=== PATIENT | female | born 1950 | race Caucasian/White ===

== ENCOUNTER 2020-09-08 11:43 | Outpatient (REF) | payer MEDICARE, MEDICAID, SELFPAY ==
--- NOTE | 2020-09-08 11:53 | XR_ITS ---
EXAMINATION: XR CHEST CLINICAL INFORMATION: Cough COMPARISON: None TECHNIQUE: 2 views of the chest were obtained. FINDINGS: There is no lobar or segmental airspace consolidation or groundglass opacity. The costophrenic sulci are clear. The heart is normal in size. The hilar and sternal contours are normal. There is dextrocurvature thoracic spine with multilevel mild degenerative disc changes. XR/XR chest 2V IMPRESSION: Unremarkable examination.
== END 2020-09-08 11:44 | disposition home or self-care (01) ==
LOC: HO.XRAY 11:43
DX: R05 Cough (principal)
CPT/HCPCS: 71046

== ENCOUNTER 2021-05-05 14:49 | Outpatient (REF) | payer MEDICARE, MEDICAID, SELFPAY ==
--- NOTE | ~2021-05-05 | MM_ITS ---
EXAMINATION: MM SCREENING DIGITAL BREAST TOMOSYNTHESIS, BILATERAL CLINICAL INFORMATION: Screening. Bilateral inverted nipples. The lifetime risk of breast cancer based on the Tyrer-Cuzick Model is 2.1%. COMPARISON: Mammography: None. TECHNIQUE: Digital breast tomosynthesis is performed in both the craniocaudal and mediolateral oblique views along with computer-aided detection (CAD). Synthesized 2-D images are generated from the tomosynthesis. Additional right exaggerated craniocaudal view performed. FINDINGS: There are scattered areas of fibroglandular density (ACR BI-RADS breast composition Category b). Bilateral nipple inversion is present. There is some irregular density about the retroareolar region of the right breast. No suspicious grouping of microcalcifications identified. There is question of density in the retroareolar region of the left breast but with no definite suspicious mass. Recommend bilateral subareolar ultrasound for further evaluation. MM/MM tomosynthesis screening BI IMPRESSION: Bilateral nipple inversion for which bilateral breast ultrasound is recommended. ASSESSMENT: BI-RADS 0: Incomplete - Need Additional Imaging Evaluation. RECOMMENDATION: Additional bilateral targeted ultrasound. Radiology department staff will contact the patient for additional imaging. This patient's information was entered into a reminder system with a target due date for their next mammogram.
== END 2021-05-05 14:50 | disposition home or self-care (01) ==
LOC: HO.MAMMO 14:49
PROVIDERS: Visit Provider Nurse Practitioner Primary Care
DX: Z12.31 Encounter for screening mammogram for malignant neoplasm of breast (principal)
CPT/HCPCS: 77063; 77067

== ENCOUNTER 2021-05-11 12:56 | Outpatient (REF) | payer MEDICARE, MEDICAID, SELFPAY ==
--- NOTE | ~2021-05-11 | US_ITS ---
EXAMINATION: US DIAGNOSTIC ULTRASOUND BREAST, LEFT CLINICAL INFORMATION: Nipple inversion. COMPARISON: Mammography of May 05, 2021. TECHNIQUE: Ultrasound of the breast is performed with real-time lindsay scale imaging and color Doppler. FINDINGS: There is no focal suspicious finding. There is no solid mass, architectural abnormality, duct ectasia, or edema in the soft tissue planes. Results are discussed with the patient at time of visit. US/US breast LT limited IMPRESSION: No left breast ultrasound abnormality appreciated. ASSESSMENT: BI-RADS 1: Negative RECOMMENDATION: Routine annual mammography screening due in 12 months. This patient's information was entered into a reminder system with a target due date for their next mammogram.
--- NOTE | ~2021-05-11 | US_ITS ---
EXAMINATION: US DIAGNOSTIC ULTRASOUND BREAST, RIGHT CLINICAL INFORMATION: Nipple inversion. COMPARISON: Mammography of May 05, 2021. TECHNIQUE: Ultrasound of the breast is performed with real-time lindsay scale imaging and color Doppler. FINDINGS: There is no focal suspicious finding. There is no solid mass, architectural abnormality, duct ectasia, or edema in the soft tissue planes. Results are discussed with the patient at time of visit. US/US breast RT limited IMPRESSION: No suspicious right breast ultrasound finding. ASSESSMENT: BI-RADS 1: Negative RECOMMENDATION: Routine annual mammography screening due in 12 months. This patient's information was entered into a reminder system with a target due date for their next mammogram.
== END 2021-05-11 12:57 | disposition home or self-care (01) ==
LOC: HO.MAMMO 12:56
PROVIDERS: Visit Provider Nurse Practitioner Primary Care
DX: N64.59 Other signs and symptoms in breast (principal)
CPT/HCPCS: 76642

== ENCOUNTER → 2022-02-12 08:43 | Outpatient (BNVA) | payer MEDICARE, MEDICAID, SELFPAY | PROVIDERS: PCP Family Medicine; Referring Provider Family Medicine; Visit Provider Physician Assistant | DX: Z12.11 Encounter for screening for malignant neoplasm of colon (principal); K59.09 Other constipation; Z53.20 Procedure and treatment not carried out because of patient's decision for unspecified reasons | CPT/HCPCS: Q3014 ==

== ENCOUNTER 2022-10-19 13:02 | Emergency (ER) | payer MEDICARE, MEDICAID, SELFPAY ==
[2022-10-19] VITALS (7 sets, daily range): BP systolic 138–167; BP diastolic 70–92; PULSE 82–103; RESP 18–48; TEMP 36.7–37.5; O2SAT 95–98; BMI 30.2
--- NOTE | ~2022-10-19 | XR_ITS ---
EXAMINATION: XR CHEST CLINICAL INFORMATION: Cough COMPARISON: 09/08/2020 TECHNIQUE: 2 views of the chest were obtained. FINDINGS: The lungs are well expanded. There is no focal consolidation, edema, or effusion. Linear atelectasis at the left base. No pneumothorax. The cardiomediastinal silhouette is within normal limits. No acute osseous abnormality. XR/XR chest 2V IMPRESSION: Linear left basilar atelectasis. Otherwise clear lungs.
--- NOTE | ~2022-10-19 | CT_ITS ---
EXAMINATION: CT ABDOMEN AND PELVIS WITHOUT CONTRAST CLINICAL INFORMATION: Abdominal distention, shortness of breath and cough COMPARISON: None TECHNIQUE: Multidetector volumetric imaging was performed from the superior aspect of the liver through the pubic symphysis. Sagittal and coronal reformatted images were obtained on the technologist's workstation. This CT examination was performed using dose optimization techniques as appropriate, variously including the following: *Automated exposure control *Adjustment of mA and/or kV according to patient size (this includes techniques or standardized protocols for targeted exams where dose is matched to indication/reason for exam; i.e. extremities or head) *Use of iterative reconstruction technique DLP: 749 mGy-cm FINDINGS: LUNG BASES: See chest CT from the same day LIVER, GALLBLADDER, AND BILIARY TREE: The liver is low in attenuation suggestive of fatty infiltration. There is a large gallstone in the gallbladder. The gallbladder is contracted. It is difficult to exclude gallbladder wall thickening. There is no intrahepatic biliary duct dilatation. The common bile duct is upper normal in size measuring 7 mm. PANCREAS: Unremarkable. SPLEEN: Unremarkable. ADRENAL GLANDS: Unremarkable. KIDNEYS AND URETERS: Small 1 to 2 mm nonobstructing stone in the upper pole of the left kidney. BLADDER: Unremarkable. GASTROINTESTINAL TRACT: The small and large bowel are unremarkable. The appendix is unremarkable. ABDOMINAL WALL: Small umbilical hernia containing fat. LYMPH NODES: Normal. VASCULAR: Atherosclerotic disease. 2 splenic artery aneurysms in the hilum measuring 0.8 and1.0 cm. One splenic artery aneurysms posterior to the body the pancreas measuring 8 mm. PELVIC VISCERA: Unremarkable. OSSEOUS STRUCTURES: Degenerative changes of the spine. CT/CT abdomen pelvis wo IV con IMPRESSION: Large gallstone in the gallbladder. Fatty liver. Small nonobstructing left renal stone. Splenic artery aneurysms, largest in the hilum measuring 10 mm. Fleischner guidelines were followed.
--- NOTE | ~2022-10-19 | CT_ITS ---
EXAMINATION: CT CHEST WITHOUT CONTRAST CLINICAL INFORMATION: Shortness of breath and cough COMPARISON: Previous chest x-ray most recent from the same day TECHNIQUE: Multidetector volumetric CT imaging of the chest was done. Axial MIP volume rendering provided. Sagittal and coronal reformatted images were obtained. This CT examination was performed using dose optimization techniques as appropriate, variously including the following: *Automated exposure control *Adjustment of mA and/or kV according to patient size (this includes techniques or standardized protocols for targeted exams where dose is matched to indication/reason for exam; i.e. extremities or head) *Use of iterative reconstruction technique DLP: 214 mGy-cm FINDINGS: LUNGS: Bronchial wall thickening and airspace disease in the left lower lobe suggestive of bronchopneumonia. 6 mm calcified granuloma in the right middle lobe axial image 209 series 7. MEDIASTINUM: Upper normal-size heart. No pericardial effusion. Aortic valve calcification. Normal caliber thoracic aorta. No enlarged hilar or mediastinal lymph nodes. Question small esophageal hernia. CORONARY ARTERY CALCIFICATION: None visualized on this study. PLEURA: There is no pleural effusion. No pleural mass or thickening. AXILLA: No lymphadenopathy. UPPER ABDOMEN: Unremarkable. OSSEOUS STRUCTURES: Degenerative changes of the spine. T11 vertebral body hemangioma. CT/CT chest wo IV con IMPRESSION: Left lower lobe bronchopneumonia. 6 mm calcified right middle lobe nodule suggestive of a calcified granuloma. Fleischner guidelines were followed.
--- NOTE | 2022-10-19 13:17 | ED.URI ---
HPI - URI/Sore Throat General Chief Complaint: Upper Respiratory Symptoms <GAIBNO Rodriguez - Last Filed: 10/19/22 13:20> Stated Complaint: Cough/Body aches <GABINO Rodriguez - Last Filed: 10/19/22 13:20> Time Seen by Provider: 10/19/22 17:13 <GABINO Rodriguez - Last Filed: 10/19/22 13:20> Source: patient <Hanane Queen NP - Last Filed: 10/20/22 00:28> Mode of arrival: ambulatory <JUAN R Akins Last Filed: 10/20/22 00:28> Limitations: no limitations <JUAN R Akins Last Filed: 10/20/22 00:28> History of Present Illness HPI Narrative: 72-year-old female presents with rib pain, 5 days of body aches, tachypnea, and over 3 months of a cough. States that she has taken multiple [id number]-fzk-[id number] medications over the past few months, but the cough keeps coming back. <Hanane Queen NP - Last Filed: 10/20/22 00:28> MD elicited complaint: cough, sore throat, rhinorrhea and nasal congestion <JUAN R Akins Last Filed: 10/20/22 00:28> Onset (ago): month(s) (3) <Hanane Queen NP - Last Filed: 10/20/22 00:28> Consistency: intermittent and progressively worsening <JUAN R Akins Last Filed: 10/20/22 00:28> Severity: moderate <Hanane Queen NP - Last Filed: 10/20/22 00:28> Description of mucous: clear <JUAN R Akins Last Filed: 10/20/22 00:28> Able to tolerate fluids by mouth: Yes <JUAN R Akins Last Filed: 10/20/22 00:28> Exacerbating factors: exertion and deep breaths <JUAN R Akins Last Filed: 10/20/22 00:28> Relieving factors: nothing <JUAN R Akins Last Filed: 10/20/22 00:28> Associated symptoms: myalgias, headache, rhinorrhea, nasal congestion, sore throat, cough and shortness of breath <Hanane Queen NP - Last Filed: 10/20/22 00:28> Treatments prior to arrival: cold medicine <Hanane Queen NP - Last Filed: 10/20/22 00:28> Related Data Home Medications: Home Medications Medication Instructions Recorded Confirmed aspirin 81 mg tablet,delayed 81 mg PO DAILY 02/12/22 release atorvastatin 10 mg tablet 10 mg PO DAILY 02/12/22 docusate sodium 100 mg capsule 100 mg PO BEDTIME PRN 02/12/22 haloperidol 2 mg tablet 2 mg PO BEDTIME 02/12/22 hydrochlorothiazide 25 mg tablet 25 mg PO DAILY 02/12/22 melatonin 5 mg tablet 5 mg PO BEDTIME 02/12/22 metformin 850 mg tablet 850 mg PO BID 02/12/22 mirtazapine 7.5 mg tablet 7.5 mg PO BEDTIME 02/12/22 Previous Rx's Medication Instructions Recorded methylcellulose (laxative) 500 mg 500 mg PO BID #60 tabs 02/12/22 tablet (Citrucel) benzonatate 100 mg capsule 100 mg PO TID PRN cough #20 caps 10/19/22 cefuroxime axetil 500 mg tablet 500 mg PO Q12H 7 days #14 tabs 10/19/22 doxycycline monohydrate 100 mg 100 mg PO BID 7 days #14 caps 10/19/22 capsule <GABINO Rodriguez - Last Filed: 10/19/22 13:20> Allergies/Adverse Reactions: Allergies Allergy/AdvReac Type Severity Reaction Status Date / Time No Known Allergies Allergy Verified 10/19/22 13:19 <GABINO Rodriguez - Last Filed: 10/19/22 13:20> Review of Systems Review of Systems: Constitutional: No Fever, no Chills, positive fatigue, positive Malaise ENT/Mouth: positive sore throat, positive runny nose Eyes: No Discharge Cardiovascular: Positive chest wall Pain, positive SOB Respiratory: Positive Cough, No Sputum, No Wheezing, No Smoke Exposure, positive Dyspnea Gastrointestinal: No Nausea, No Vomiting, No Diarrhea Genitourinary: No Dysuria, No Urinary Frequency, No Hematuria, No Urinary Incontinence, No Urgency, No Flank Pain, Musculoskeletal: positive Myalgia Skin: No rash Neuro: Positive Headache <Hanane Queen NP - Last Filed: 10/20/22 00:28> Yes all other systems are reviewed and are negative <Hanane Queen NP - Last Filed: 10/20/22 00:28> FORMERLY [facility], [facility] Past Medical History Attestation statement: The following information was validated with the patient. <Hanane Queen NP - Last Filed: 10/20/22 00:28> Source: old records reviewed <Hanane Queen NP - Last Filed: 10/20/22 00:28> Family History Family History: Family History Unknown No family history of colorectal cancer <GABINO Rodriguez - Last Filed: 10/19/22 13:20> Social History Social History: Social History Household Members Other:: lives with daughter Alcohol intake: never Patient Tobacco Use Status: Never used Tobacco Smoked in Last 30 Days: No Use of substances other than those prescribed or required for medical reasons: No Advance Directives: No Advance Directives Information Provided: Yes Current occupational status: unemployed <GABINO Rodriguez - Last Filed: 10/19/22 13:20> Physical Exam Vital Signs: Vital Signs: Last Vital Signs Temp 98.6 F 10/19/22 21:55 Pulse 99 10/19/22 21:55 Resp 21 H 10/19/22 21:55 BP 162/84 H 10/19/22 21:55 Pulse Ox 97 10/19/22 21:58 O2 Del Method 10/19/22 21:58 BMI result Body Mass Index 30.2 <GABINO Rodriguez - Last Filed: 10/19/22 13:20> Vital Signs: Last Vital Signs Temp 98.6 F 10/19/22 21:55 Pulse 99 10/19/22 21:55 Resp 21 H 10/19/22 21:55 BP 162/84 H 10/19/22 21:55 Pulse Ox 97 10/19/22 21:58 O2 Del Method 10/19/22 21:58 BMI result Body Mass Index 30.2 <Hanane Queen NP - Last Filed: 10/20/22 00:28> Appearance: Alert. Oriented X3. Appears tired. Eyes: Pupils equal, round and reactive to light. ENT: Pharynx normal. Neck: Normal inspection. Neck supple. CVS: Normal heart rate and rhythm. Pulses normal. Respiratory: Tachypneic. Mild respiratory distress. Expiratory wheezing. Diminished bases. Abdomen: Soft and nontender. Skin: Skin warm and dry. Normal skin color. Normal skin turgor. Extremities: No lower extremity edema. Gait balanced and coordinated. Neuro: No motor deficit. No sensory deficit. Cranial nerves 2-12 intact. <Hanane Queen NP - Last Filed: 10/20/22 00:28> Course Course Course Narrative: RME-- 72yo F w/pmhx DM c/o nonproductive cough and myalgias x5 days. Admits cough is keeping her up at night. Also reports tachypnea. Afebrile in triage, tachypneic with shallow breaths EKG, labs, CXR, COVID-19/influenza/RSV testing ordered in triage <GABINO Rodriguez - Last Filed: 10/19/22 13:20> RME-- 72yo F w/pmhx DM c/o nonproductive cough and myalgias x5 days. Admits cough is keeping her up at night. Also reports tachypnea. Afebrile in triage, tachypneic with shallow breaths EKG, labs, CXR, COVID-19/influenza/RSV testing ordered in triage 72-year-old female presents with 3 months of upper respiratory symptoms. States that the symptoms have waxed and waned but never really resolved. She states that over the past few days her cough is so severe that it is difficult for her to walk up stairs. Upon triage, her respiration rate was in the 40s, upon my evaluation her resting respiration rate is 20. She has adventitious lung sounds, labs were drawn while she was in the emergency department waiting room, chest x-ray was negative, influenza COVID negative, and labs were unremarkable. Considering patient's lung sounds, respiration rate, and duration of illness will order CT scan chest abdomen pelvis. 20:40 CT abdomen cholelithiasis without cholecystitis. Will have patient follow-up as an outpatient as she is not complaining of any abdominal pain, and labs are unremarkable. CT scan of the chest indicates lower lobe bronchopneumonia and a 6 mm right middle lobe nodule suggestive of calcified granuloma. 20:42 ambulatory pulse ox 94%. 20:45 discussion with hospitalist, patient does not meet admission criteria. Will give doxycycline and cefuroxime, albuterol and Tessalon. Patient's family understands that if symptoms worsen that they should return to the emergency department for evaluation. Patient verbalized understanding of and agrees to plan of care discharge home. <Hanane Queen NP - Last Filed: 10/20/22 00:28> Consultations Consultation #1: Dennis <Hanane Queen NP - Last Filed: 10/20/22 00:28> Time: 20:45 <Hanane Queen NP - Last Filed: 10/20/22 00:28> Medications Administered Discontinued Medications Generic Name Dose Route Start Last Admin Trade Name Freq PRN Reason Stop Dose Admin Albuterol Sulfate 2.5 mg/ 5 mg 10/19/22 17:20 10/19/22 17:39 Albuterol Sulfate 2.5 mg INHALE 10/19/22 17:21 5 mg ONCE ONE Administration Benzonatate 100 mg 10/19/22 21:25 10/19/22 21:43 Benzonatate 100 Mg Capsule PO 10/19/22 21:26 100 mg ONCE ONE Administration Cefuroxime Axetil 500 mg 10/19/22 21:25 10/19/22 21:43 Cefuroxime Axetil 500 Mg Tablet PO 10/19/22 21:26 500 mg ONCE ONE Administration Doxycycline Monohydrate 100 mg 10/19/22 21:25 10/19/22 21:43 Doxycycline Monohydrate 100 Mg Capsule PO 10/19/22 21:26 100 mg ONCE ONE Administration <GABINO Rodriguez - Last Filed: 10/19/22 13:20> Medications Administered Discontinued Medications Generic Name Dose Route Start Last Admin Trade Name Freq PRN Reason Stop Dose Admin Albuterol Sulfate 2.5 mg/ 5 mg 10/19/22 17:20 10/19/22 17:39 Albuterol Sulfate 2.5 mg INHALE 10/19/22 17:21 5 mg ONCE ONE Administration Benzonatate 100 mg 10/19/22 21:25 10/19/22 21:43 Benzonatate 100 Mg Capsule PO 10/19/22 21:26 100 mg ONCE ONE Administration Cefuroxime Axetil 500 mg 10/19/22 21:25 10/19/22 21:43 Cefuroxime Axetil 500 Mg Tablet PO 10/19/22 21:26 500 mg ONCE ONE Administration Doxycycline Monohydrate 100 mg 10/19/22 21:25 10/19/22 21:43 Doxycycline Monohydrate 100 Mg Capsule PO 10/19/22 21:26 100 mg ONCE ONE Administration <Hanane Queen NP - Last Filed: 10/20/22 00:28> Medical Decision Making Medical Decision Making Differential Diagnoses: Differential diagnosis (Pneumonia, COVID, influenza, CHF) <Hanane Queen NP - Last Filed: 10/20/22 00:28> Consideration of admission/observation: Consideration of Admission/Observation (Admission considered, I did discuss with hospitalist who did not feel that this patient meets admission criteria.) <Hanane Queen NP - Last Filed: 10/20/22 00:28> Discussion of management with other physician/healthcare provider/other source (e.g., hospitalist, [employer] operations consultant, behavioral health): Discussion w/other physician/healthcare provider Management of the patient was discussed with: Hospitalist My interpretation is <Hanane Queen NP - Last Filed: 10/20/22 00:28> Lab Attestation: I reviewed the patient's lab results. <JUAN R Akins Last Filed: 10/20/22 00:28> Independent interpretation of EKG, rhythm strip, radiology study: Independent interp EKG,rhythm strip, radiology study I performed an independent interpretation of the: EKG (Ventricular rate 83, MI 128, QRS 80, QT 360, QTC 423, normal sinus rhythm, normal EKG.) My interpretation is <JUAN R Akins Last Filed: 10/20/22 00:28> Discussion of test interpretation with radiology: Discussion of test interpretation with radiology EXAMINATION: XR CHEST CLINICAL INFORMATION: Cough COMPARISON: 09/08/2020 TECHNIQUE: 2 views of the chest were obtained. FINDINGS: The lungs are well expanded. There is no focal consolidation, edema, or effusion. Linear atelectasis at the left base. No pneumothorax. The cardiomediastinal silhouette is within normal limits. No acute osseous abnormality. XR/XR chest 2V IMPRESSION: Linear left basilar atelectasis. Otherwise clear lungs. FINDINGS: LUNGS: Bronchial wall thickening and airspace disease in the left lower lobe suggestive of bronchopneumonia. 6 mm calcified granuloma in the right middle lobe axial image 209 series 7. MEDIASTINUM: Upper normal-size heart. No pericardial effusion. Aortic valve calcification. Normal caliber thoracic aorta. No enlarged hilar or mediastinal lymph nodes. Question small esophageal hernia.? CORONARY ARTERY CALCIFICATION: None visualized on this study. PLEURA: There is no pleural effusion. No pleural mass or thickening.? AXILLA: No lymphadenopathy.? UPPER ABDOMEN: Unremarkable.? OSSEOUS STRUCTURES: Degenerative changes of the spine. T11 vertebral body hemangioma.? CT/CT chest wo IV con IMPRESSION: Left lower lobe bronchopneumonia. 6 mm calcified right middle lobe nodule suggestive of a calcified granuloma. ? Fleischner guidelines were followed. FINDINGS: LUNG BASES: See chest CT from the same day? LIVER, GALLBLADDER, AND BILIARY TREE: The liver is low in attenuation suggestive of fatty infiltration. There is a large gallstone in the gallbladder. The gallbladder is contracted. It is difficult to exclude gallbladder wall thickening. There is no intrahepatic biliary duct dilatation. The common bile duct is upper normal in size measuring 7 mm. PANCREAS: Unremarkable.? SPLEEN: Unremarkable.? ADRENAL GLANDS: Unremarkable.? KIDNEYS AND URETERS: Small 1 to 2 mm nonobstructing stone in the upper pole of the left kidney. BLADDER: Unremarkable.? GASTROINTESTINAL TRACT: The small and large bowel are unremarkable. The appendix is unremarkable.? ABDOMINAL WALL: Small umbilical hernia containing fat. LYMPH NODES: Normal. VASCULAR: Atherosclerotic disease. 2 splenic artery aneurysms in the hilum measuring 0.8 and1.0 cm. One splenic artery aneurysms posterior to the body the pancreas measuring 8 mm. PELVIC VISCERA: Unremarkable.? OSSEOUS STRUCTURES: Degenerative changes of the spine. CT/CT abdomen pelvis wo IV con IMPRESSION: Large gallstone in the gallbladder. Fatty liver. Small nonobstructing left renal stone. Splenic artery aneurysms, largest in the hilum measuring 10 mm.? ? Fleischner guidelines were followed. <Hanane Queen NP - Last Filed: 10/20/22 00:28> Discharge Plan Discharge Clinical Impression: Cholelithiasis without cholecystitis, Bronchial pneumonia <GABINO Rodriguez - Last Filed: 10/19/22 13:20> Patient Disposition: Home, Self-Care <GABINO Rodriguez - Last Filed: 10/19/22 13:20> Instructions: Gallstones (ED), Acute Bronchitis (ED), Pneumonia (ED) <GABINO Rodriguez - Last Filed: 10/19/22 13:20> Additional Instructions: Le evaluaron por dificultad para respirar. La tomograf?a computarizada de t?rax, abdomen y pelvis indica bronquitis y neumon?a. Lo estamos tratando con doxiciclina 100 mg dos veces al d?a nilda los pr?ximos 7 d?as y cefuroxima 500 mg dos veces al d?a nilda los pr?ximos 7 d?as. Use el inhalador de albuterol 2 inhalaciones cada 4 a 6 horas seg?n sea necesario para la dificultad para respirar. Use Tessalon Perles seg?n sea necesario para la tos cada 8 horas. Beber mucho l?quido. La tomograf?a computarizada indica un c?lculo en la ves?cula biliar sin inflamaci?n o infecci?n de la ves?cula biliar. Por favor, umer un seguimiento con el cirujano para rivera evaluaci?n. Lo he referido al Dr. Anand?gina. Por favor llame y solicite annabella hernán. Si rivera respiraci?n o lisa s?ntomas empeoran, regrese al departamento de emergencias. Cameron por elegir valdez departamento de emergencias para rivera evaluaci?n. Por favor, umer un seguimiento con el m?dico de atenci?n primaria seg?n sea necesario. Regrese al departamento de emergencias por cualquier s?ntoma nuevo, preocupante o que empeore You were evaluated for shortness of breath. CT scan of chest abdomen and pelvis indicates bronchitis and pneumonia. We are treating you with doxycycline 100 mg twice a day for the next 7 days, and cefuroxime 500 mg twice a day for the next 7 days. Use albuterol inhaler 2 puffs every 4-6 hours as needed for shortness of breath. Use Tessalon Perles as needed for cough every 8 hours. Drink plenty of fluids. CT scan indicates a gallbladder stone without gallbladder inflammation or infection. Please follow-up with the surgeon for evaluation. I have referred you to Dr. Rich. Please call and request an appointment. If your breathing or symptoms get worse, please return to the emergency department. Thank you for choosing this emergency department for evaluation. Please follow-up with primary care physician as needed. Return to the emergency department for any new, concerning, or worsening symptoms. <GABINO Rodriguez - Last Filed: 10/19/22 13:20> Prescriptions: New benzonatate 100 mg capsule 100 mg PO TID PRN (Reason: cough) Qty: 20 0RF doxycycline monohydrate 100 mg capsule 100 mg PO BID 7 Days Qty: 14 0RF cefuroxime axetil 500 mg tablet 500 mg PO Q12H 7 Days Qty: 14 0RF No Action aspirin 81 mg tablet,delayed release (DR/EC) 81 mg PO DAILY mirtazapine 7.5 mg tablet 7.5 mg PO BEDTIME haloperidol 2 mg tablet 2 mg PO BEDTIME metformin 850 mg tablet 850 mg PO BID hydrochlorothiazide 25 mg tablet 25 mg PO DAILY atorvastatin 10 mg tablet 10 mg PO DAILY docusate sodium 100 mg capsule 100 mg PO BEDTIME PRN melatonin 5 mg tablet 5 mg PO BEDTIME Citrucel 500 mg tablet 500 mg PO BID Qty: 60 5RF <GABINO Rodriguez - Last Filed: 10/19/22 13:20> Interventions: ED Discharge Assessment Last Done: 10/19/22 22:04 <GABINO Rodriguez - Last Filed: 10/19/22 13:20> Discharge Date/Time: 10/19/22 22:07 <GABINO Rodriguez - Last Filed: 10/19/22 13:20>
--- NOTE | 2022-10-19 13:20 | ECG_ITS ---
Test Reason : CP Blood Pressure : / mmHG Vent. Rate : 083 BPM Atrial Rate : 083 BPM P-R Int : 128 ms QRS Dur : 080 ms QT Int : 360 ms P-R-T Axes : 028 010 035 degrees QTc Int : 423 ms Normal sinus rhythm Normal ECG No previous ECGs available Referred By: Millie Cantor Electronically Signed By:HAKEEM MARTINES MD
[2022-10-19 13:40] LABS: Basophils Percent Auto 0.5 % (0-2); Eosinophils Absolute Auto 0.3 X10*3/uL (0.0-0.4); Eosinophils Percent Auto 3.2 % (0-4); Hematocrit 40.3 % (37.0-47.0); Hemoglobin 13.4 g/dl (12.0-16.0); Imm Gran Abs Auto 0.02 X10*3/uL (0.00-0.03); Imm Gran Pct Auto 0.2 % (0.0-0.4); Lymphocytes Absolute Auto 2.1 X10*3/uL (1.2-4.9); MANUAL DIFF FLAG NO; Mean Corpuscular HGB Conc 33.3 g/dl (31.0-35.0); Mean Corpuscular Volume 90.4 fL (80.0-98.0); Mean Platelet Volume 9.2 fL (9.4-12.3); Monocytes Percent Auto 11.8 % (2-11); Neutrophils Absolute Auto 4.8 x10*3/uL (2.0-8.3); Neutrophils Percent Auto 58.3 % (45-73); Platelet Count 339 X10*3/uL (160-400); Red Blood Count 4.46 X10*6/uL (4.20-5.50); Red Cell Distribution Width 12.2 % (11.0-16.0); White Blood Count 8.2 X10*3/uL (4.8-10.8)
[2022-10-19 13:47] LABS: Prothrombin Time 11.3 SEC (10.0-13.1)
[2022-10-19 13:56] LABS: Alanine Aminotransferase 62 U/L (0-31); Albumin Level 4.1 g/dL (3.5-5.0); Alkaline Phosphatase 86 U/L (39-117); Anion Gap 9 (12-20); Aspartate Amino Transferase 37 U/L (5-31); Bilirubin Direct < 0.2 mg/dL (0.0-0.5); Bilirubin Total 0.4 mg/dL (0.0-1.0); Blood Urea Nitrogen 11 mg/dL (9-16); Calcium 9.6 mg/dL (8.4-10.2); Carbon Dioxide 29 mmol/L (22-29); Chloride 106 mmol/L (96-108); Creatinine Clr Calc Pharmacy 46.8; Estimated Glomerular Filt Rate 57; Glucose Random 97 mg/dL (60-115); Magnesium 2.1 mg/dL (1.6-2.6); Potassium 4.2 mmol/L (3.3-5.1); Sodium 140 mmol/L (135-145); Total Protein 7.4 g/dL (6.5-8.0)
[2022-10-19 13:59] LABS: B Type Natriuretic Peptide < 10 pg/mL (<100)
[2022-10-19 14:20] LABS: Troponin-I High Sensitivity < 3.5 ng/L (<3.5-17.0)
[2022-10-19 14:34] LABS: Influenza A PCR NEGATIVE (Negative); Influenza B PCR NEGATIVE (Negative); Resp Syncy Virus RNA Qual PCR NEGATIVE (Negative); SARS COV2 PCR INHOUSE NEGATIVE (Negative)
[2022-10-19] MEDS: Albuterol Sulfate 2.5 MG, Albuterol Sulfate (0.083%) 2.5 MG 5 MG INHALE (17:39)
--- NOTE | 2022-10-19 20:43 | PC.NURSE ---
pt alert and oriented, Welsh speaking only pt report that she been having a cough for few months along with sob, report that she been sneezing denies any chest pain pt is 100% RA
[2022-10-19 21:15] LABS: Appearance Urine Clear; Color Urine Yellow; Glucose Urine UA Negative (Negative); Leukocyte Esterase Urine Trace (Negative); Nitrite Urine Negative (Negative); PH 6.5 (5.0-9.0); UMIC TRIGGER UACC YES; Urine Blood Negative (Negative); Urine Ketones Trace mg/dL (Negative); Urine Protein Negative (Neg-Trace)
--- NOTE | 2022-10-19 21:16 | PM.EVENT ---
Event Note Date of Service: 10/19/22 Event Note: Was asked to evaluate the patient by ER provider. Patient with upper respiratory tract symptoms, productive cough that has been ongoing for a few weeks. Imaging with left-sided bronchopneumonia. Patient maintaining normal oxygen saturation at rest and on ambulation. Patient was 97% after ambulating in the hallway. Does not meet sepsis criteria or inpatient criteria for IV antibiotics at this time. Okay to discharge with p.o. antibiotics. Discussed with daughter and ER provider who agree with the plan. Asked to come back to the ER in case of new or worsening complaints. Time Spent With Patient Time: Total time managing care of this patient today ____ minutes.
[2022-10-19 21:20] LABS: Bacteria Urine None Seen (None Seen); Hyaline Casts Urine 0-2 /LPF (0-2); RBC Urine 0-2 /HPF (0-2); Squamous Epithelial Cell Urine 0-2 /HPF (0-2); WBC Urine 0-5 /HPF (0-5)
[2022-10-19] MEDS: Doxycycline Monohydrate 100 MG CAPSULE PO (21:43)
[2022-10-19] MEDS: Benzonatate 100 MG CAPSULE PO (21:43)
--- NOTE | 2022-10-19 22:02 | PC.NURSE ---
Discharge instructions given and explained to patient. Patient speaking in full sentences. No respiratory distress. Patient ambulates safely and independently.
--- NOTE | 2022-10-19 22:03 | PC.NURSE ---
Educated patient on use of inhaler per MAR. Patient demonstrated that she understood how to use inhaler after instruction given.
== END 2022-10-19 22:07 | disposition home or self-care (01) ==
PROVIDERS: Nurse Practitioner Family; Physician Assistant; Emergency Provider Emergency Medicine; PCP Family Medicine
DX: J18.0 Bronchopneumonia, unspecified organism (principal); K80.20 Calculus of gallbladder without cholecystitis without obstruction; R05.9 Cough, unspecified; R06.02 Shortness of breath; M79.10 Myalgia, unspecified site; R07.89 Other chest pain; Z20.822 Contact with and (suspected) exposure to COVID-19; Z79.899 Other long term (current) drug therapy
CPT/HCPCS: 0241U; 36415; 71046; 71250; 74176; 80048; 80076; 81001; 83735; 83880; 84484; 85025; 85610; 92950; 93005; 94640; 99284; 99285

== ENCOUNTER 2023-04-24 14:31 | Outpatient (REF) | payer MEDICARE, MEDICAID, SELFPAY ==
--- NOTE | ~2023-04-24 | CT_ITS ---
EXAMINATION: CT CHEST WITHOUT CONTRAST CLINICAL INFORMATION: Pulmonary nodule COMPARISON: CT chest, abdomen, and pelvis 10/19/2022. Bronchial wall thickening and airspace disease in the left lower lobe suggestive of bronchopneumonia. 6 mm calcified granuloma in the right middle lobe axial image 209 series 7. TECHNIQUE: Multidetector volumetric CT imaging of the chest was done. Axial MIP volume rendering provided. Sagittal and coronal reformatted images were obtained. This CT examination was performed using dose optimization techniques as appropriate, variously including the following: *Automated exposure control *Adjustment of mA and/or kV according to patient size (this includes techniques or standardized protocols for targeted exams where dose is matched to indication/reason for exam; i.e. extremities or head) *Use of iterative reconstruction technique DLP: 130 mGy-cm FINDINGS: LUNGS: Mild biapical pleural scarring is again noted. There are calcified benign granulomas again seen includin mm left upper lobe (5:126 compare prior 7:85) 8 mm right middle lobe (5:318 compare prior 7:211) There is a small noncalcified 3 mm subpleural nodule in the right upper lobe which is unchanged (5:178 compare prior 7:123). No new or worrisome lung masses are seen. MEDIASTINUM: Thyroid appears unremarkable. Calcification present in the thoracic aorta without aneurysm. No mediastinal or hilar lymphadenopathy is seen. CORONARY ARTERY CALCIFICATION: None visualized on this study. PLEURA: There is no pleural effusion. No pleural mass or thickening. AXILLA: No lymphadenopathy. UPPER ABDOMEN: Calcified splenic artery aneurysms are present measuring 1.3 and 0.9 cm (3:42 and 44). The adrenal glands appear normal. A large gallstone is present within the gallbladder. OSSEOUS STRUCTURES: A hemangioma is present in the T10 vertebral body. CT/CT chest wo IV con IMPRESSION: 1. Pulmonary calcified granulomas are stable. 2. Stable small 3 mm noncalcified nodule. 3. No worrisome lung masses are seen. 4. Incidental note made of calcified splenic artery aneurysms, cholelithiasis and T10 vertebral body hemangioma. Fleischner guidelines were followed.
== END 2023-04-24 14:32 | disposition home or self-care (01) ==
LOC: HO.CT 14:31
PROVIDERS: PCP Family Medicine; Visit Provider Family Medicine
DX: R91.1 Solitary pulmonary nodule (principal)
CPT/HCPCS: 71250

== ENCOUNTER 2023-07-30 08:42 | Outpatient (REF) | payer MEDICARE, MEDICAID, SELFPAY ==
[2023-07-30 14:29] LABS: MANUAL DIFF FLAG NO
[2023-07-30 14:36] LABS: Basophils Percent Auto 0.7 % (0-2); Eosinophils Absolute Auto 0.2 X10*3/uL (0.0-0.4); Hematocrit 41.8 % (37.0-47.0); Hemoglobin 13.5 g/dl (12.0-16.0); Imm Gran Abs Auto 0.01 X10*3/uL (0.00-0.03); Imm Gran Pct Auto 0.2 % (0.0-0.4); Lymphocytes Absolute Auto 1.7 X10*3/uL (1.2-4.9); Lymphocytes Percent Auto 30.3 % (20-40); Mean Corpuscular HGB Conc 32.3 g/dl (31.0-35.0); Mean Corpuscular Hemoglobin 30.1 pg (27.0-33.0); Mean Corpuscular Volume 93.3 fL (80.0-98.0); Mean Platelet Volume 10.2 fL (9.4-12.3); Monocytes Absolute Auto 0.6 X10*3/uL (0.1-1.2); Neutrophils Absolute Auto 3.1 x10*3/uL (2.0-8.3); Neutrophils Percent Auto 53.8 % (45-73); Platelet Count 311 X10*3/uL (160-400); Red Blood Count 4.48 X10*6/uL (4.20-5.50); Red Cell Distribution Width 12.8 % (11.0-16.0); White Blood Count 5.7 X10*3/uL (4.8-10.8)
[2023-07-30 16:14] LABS: Alanine Aminotransferase 43 U/L (0-31); Albumin Level 4.1 g/dL (3.5-5.0); Alkaline Phosphatase 77 U/L (39-117); Anion Gap 11 (12-20); Aspartate Amino Transferase 38 U/L (5-31); Bilirubin Total 0.3 mg/dL (0.0-1.0); Blood Urea Nitrogen 8 mg/dL (9-16); Calcium 10.3 mg/dL (8.4-10.2); Carbon Dioxide 28 mmol/L (22-29); Chloride 104 mmol/L (96-108); Cholesterol 253 mg/dL (<200); Estimated Glomerular Filt Rate 55; Glucose Fasting 106 mg/dL (60-99); HDL Cholesterol 36 mg/dL (>40); LDL Cholesterol Calculated 175 mg/dL (<100); Potassium 4.4 mmol/L (3.3-5.1); Sodium 139 mmol/L (135-145); Total Protein 7.9 g/dL (6.5-8.0); Triglycerides 214 mg/dL (<150)
[2023-07-30 16:23] LABS: TSH reflex Free T4 2.16 uIU/mL (0.32-4.0)
[2023-07-30 16:30] LABS: Folate 7.6 ng/mL (> or = 4.0); Vitamin B12 348 pg/mL (200-900)
[2023-07-30 16:49] LABS: Creatinine Urine 190.58 mg/dL; Microalbum/Creatinine Ratio Ur 4.7 ug/mg cr (<30)
== END 2023-07-30 08:43 | disposition home or self-care (01) ==
LOC: HO.CHCLDS 08:42
PROVIDERS: Visit Provider Family Medicine
DX: E11.65 Type 2 diabetes mellitus with hyperglycemia (principal)
CPT/HCPCS: 36415; 80053; 80061; 82043; 82570; 82607; 82746; 84443; 85025

== ENCOUNTER 2023-09-04 09:01 | Outpatient (REF) | payer MEDICARE, MEDICAID, SELFPAY ==
--- NOTE | ~2023-09-04 | US_ITS ---
EXAMINATION: US ABDOMEN LIMITED CLINICAL INFORMATION: Persistent transaminitis. COMPARISON: CT abdomen and pelvis 10/19/2022. TECHNIQUE: Real-time imaging of the right upper quadrant abdominal viscera. FINDINGS: PANCREAS: The pancreas is not well seen due to bowel gas. LIVER: The liver is normal in size. The liver contour is normal. There is diffuse increased liver parenchymal echogenicity, consistent with hepatic steatosis. No focal hepatic lesion. There is no intrahepatic biliary duct dilatation seen. GALLBLADDER: The gallbladder appears contracted. Multiple mobile gallstones are present. No evidence pericholecystic fluid. Gallbladder wall thickening is likely due to the contracted state of the gallbladder. COMMON BILE DUCT: Normal in caliber measuring 0.6 cm in diameter. RIGHT KIDNEY: Normal. No hydronephrosis. No renal calculi or focal parenchymal lesions. The kidney measures 9.7 cm in maximum dimension. FREE FLUID: None. US/US abdomen limited IMPRESSION: 1. Hepatic steatosis. 2. Cholelithiasis. 3. The gallbladder is contracted, limiting evaluation.
== END 2023-09-04 09:02 | disposition home or self-care (01) ==
LOC: HO.US 09:01
PROVIDERS: PCP Family Medicine; Visit Provider Family Medicine
DX: R74.01 Elevation of levels of liver transaminase levels (principal)
CPT/HCPCS: 76705

== ENCOUNTER 2024-09-07 08:56 | Outpatient (REF) | payer MEDICARE, MEDICAID, SELFPAY ==
[2024-09-07 11:59] LABS: Cholesterol 89 mg/dL (<200); HDL Cholesterol 30 mg/dL (>40); LDL Cholesterol Calculated 39 mg/dL (<100); Triglycerides 102 mg/dL (<150)
== END 2024-09-07 08:57 | disposition home or self-care (01) ==
LOC: HO.HHCL 08:56
PROVIDERS: Visit Provider Family Medicine
DX: E78.5 Hyperlipidemia, unspecified (principal)
CPT/HCPCS: 36415; 80061